=== PATIENT | female | born 1940 | race Asian ===

== ENCOUNTER 2018-12-07 10:36 | Inpatient (IN) | payer MEDICARE, OTHER ==
[~2018-12-07] VITALS: Ht 152.4 cm; Wt 59.0 kg
[2018-12-07 10:47] VITALS: BP 139/63
--- NOTE | 2018-12-07 10:50 | NUR ---
ED Nurse Note: pt was bought in to ER by ambulance from street. pt aao x4 and Icelandic speaking. pt felt dizzy so went to [facility] and they were closed due to saturday. pt was going back home and felt dizzy and was not able to walk. pt sat down to grass and asked random person on the street to call 911. EMS reported that pt fell but pt denied fall incident. pt stated "I just sat down because I was too dizzy." skin clean and intact but pale. pt reported she had diarrhea x3 started today and nausea with clear saliva vomit.
[2018-12-07] MEDS ORDERED: Meclizine 25mg tab ORAL ONE (11:00)
[2018-12-07 11:43] LABS: BASOPHILS % (AUTO) 0.7 % (0.0-2.0); EOSINOPHILS % (AUTO) 1.1 % (0.0-3.0); HEMATOCRIT 37.8 % (37.0-47.0); HEMOGLOBIN 12.4 G/DL (12.0-16.0); LYMPHOCYTES % (AUTO) 11.5 % (20.0-45.0); MEAN CORPUSCULAR VOLUME 92 FL (80-99); MONOCYTES % (AUTO) 4.3 % (1.0-10.0); NEUTROPHILS % (AUTO) 82.4 % (45.0-75.0); PLATELET COUNT 201 K/UL (150-450); RED BLOOD COUNT 4.13 M/UL (4.20-5.40); RED CELL DISTRIBUTION WIDTH 12.1 % (11.6-14.8); WHITE BLOOD COUNT 9.1 K/UL (4.8-10.8)
[2018-12-07 11:59] LABS: ANION GAP 8 mmol/L (5-15); BLOOD UREA NITROGEN 20 mg/dL (7-18); CARBON DIOXIDE 26 MMOL/L (21-32); CHLORIDE 105 MMOL/L (98-107); CREATININE 0.7 MG/DL (0.55-1.30); INR 0.9 (0.9-1.1); SODIUM 139 MMOL/L (136-145)
[2018-12-07 12:03] LABS: ALANINE AMINOTRANSFERASE 17 U/L (12-78); ALBUMIN/GLOBULIN RATIO 1.1 (1.0-2.7); ALKALINE PHOSPHATASE 57 U/L (46-116); ASPARTATE AMINO TRANSFERASE 20 U/L (15-37); BILIRUBIN,TOTAL 0.6 MG/DL (0.2-1.0)
--- NOTE | 2018-12-07 12:14 | Diagnostic Imaging Report ---
EXAM: CT Head Without Intravenous Contrast CLINICAL HISTORY: DIZZY TECHNIQUE: Axial computed tomography images of the head/brain without intravenous contrast. CTDI is 70.38 mGy and DLP is 1369 mGy-cm. One or more of the following dose reduction techniques were used: automated exposure control, adjustment of the mA and/or kV according to patient size, use of iterative reconstruction technique. COMPARISON: No relevant prior studies available. FINDINGS: No intracranial hemorrhage, abnormal intra- or extra-axial collections or parenchymal lesions are seen. There are mild involutional changes with prominence of the sulci, basal cisterns and ventricles. Scattered mild white matter hypoattenuations are present, likely from small vessel disease. The byers-white differentiation is preserved. No evidence of mass effect, midline shift, or edema. The osseous structures are unremarkable. The visualized portions of the paranasal sinuses are clear. IMPRESSION: 1. No acute intracranial process. 2. Mild involutional changes with small vessel disease.
[2018-12-07 13:10] VITALS: BP 133/46
[2018-12-07 15:38] VITALS: BP 133/64
--- NOTE | 2018-12-07 15:40 | NUR ---
Devendra luz in EDM - 12/07/18 at 1542 by [email or web address] ED Nurse Note: pt left [facility] with 2 transporation personals in stable condition.
[2018-12-07] MEDS ORDERED: Miralax 17gm pkt ORAL PRN (15:45)
[2018-12-07] MEDS ORDERED: Morphine Sulfate 2mg/ml Inj(IV/IM USE ONLY) IVP PRN (15:45)
[2018-12-07] MEDS ORDERED: LORazepam Inj 2mg/ml 1ml IV PRN (15:45)
[2018-12-07] MEDS ORDERED: Dextrose 50% 25ml Syringe IV PRN (15:45)
[2018-12-07] MEDS ORDERED: Zolpidem 5mg tab ORAL PRN (15:45)
[2018-12-07] MEDS ORDERED: Mylanta II UD 30ml ORAL PRN (15:45)
--- NOTE | 2018-12-07 16:16 | NUR ---
ED Nurse Note: pt sleeping in bed in stable condition.
--- NOTE | 2018-12-07 17:21 | NUR ---
ED Nurse Note: attempted to give report and [facility] has not assigned the nurse yet. was told to call back in 5 minutes.
--- NOTE | 2018-12-07 17:41 | NUR ---
ED Nurse Note: report given to TO Doe.
[2018-12-07 17:44] VITALS: BP 133/64
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
--- NOTE | 2018-12-07 17:47 | NUR ---
ED Nurse Note: pt left department with 1 sterile proc tech in stable condition.
--- NOTE | 2018-12-07 18:15 | NUR ---
NURSE NOTES: Notified Dr. Hernandez that pt wants to leave AMA. Notified Magician/Illusionist pt wants to leave AMA and needs transpiration as she 78 years old and walks with a cane. [employer] provided taxi voucher. 1829: Taxi called for pt
--- NOTE | 2018-12-07 18:50 | NUR ---
NURSE NOTES: Pt left AMA with all belongings in a taxi, discussed with pt that she needs to go to her primary doctor as soon as possible or come back to the hospital if symptoms return or get worse. Pt verbalized understanding. Addendum: 12/07/18 at 1947 by DIEGO GRIFFIN RN Pt removed IV line and ID band. Pt ambulatory with cane at leaving AMA, escorted pt to taxi
--- NOTE | 2018-12-09 18:33 | Emergency Room Report ---
History of Present Illness General Chief Complaint: Dizziness Source: Patient Present Illness HPI Patient is an 78-year-old female who presented after increased generalized weakness and dizziness. Patient had a recent fall. She denies any current locations of pain. She reports having increased generalized weakness as well as increased left-sided chronic hearing deficit. Patient states that she had prior long-standing hearing loss to the left side. She reports of increased spinning sensation. She denies any syncopal episodes. Allergies: Coded Allergies: No Known Allergies (Unverified , 12/07/18) Patient History Past Medical History: see triage record Reviewed Nursing Documentation: PMH: Agreed; PSxH: Agreed Nursing Documentation-PMH Hx Hypertension: Yes Review of Systems All Other Systems: negative except mentioned in HPI Physical Exam Vital Signs Date Time Temp Pulse Resp B/P (MAP) Pulse Ox O2 Delivery O2 Flow Rate FiO2 12/07/18 10:32 97.5 76 16 164/74 Room Air 12/07/18 10:47 98 Sp02 EP Interpretation: reviewed, normal General Appearance: normal inspection, well appearing, no apparent distress, alert, GCS 15, obese, Chronically Ill Head: atraumatic ENT: normal voice, other - Large defect to the left TM with no fluid drainage. Neck: normal inspection, full range of motion, supple, no bony tend Respiratory: normal inspection, lungs clear, normal breath sounds, no respiratory distress, no retraction, no wheezing Cardiovascular #1: regular rate, rhythm, no edema Gastrointestinal: normal inspection, normal bowel sounds, non tender, soft, no guarding, no hernia Genitourinary: no CVA tenderness Musculoskeletal: normal inspection, back normal, normal range of motion Neurologic: normal inspection, alert, oriented x3, responsive, tube carrier III-XII nml as tested, speech normal Psychiatric: normal inspection, judgement/insight normal, mood/affect normal Skin: normal inspection, normal color, no rash Medical Decision Making Diagnostic Impression: Primary Impression: Generalized weakness Additional Impressions: Fall Vertigo Hearing loss in left ear ER Course CT the head read by radiology showed no evidence of acute intracranial hemorrhage or patient presented for dizziness. Differential diagnosis included was not limited to CVA, vertebrobasilar insufficiency, myocardial infarction, benign positional vertigo, labyrinthitis, aspirin overdose among others. The patient has exam consistent with peripheral vertigo likely do to benign positional vertigo. Patient was given oral meclizine. Patient had some improvement in her symptoms but continued to feel weak and was noted to have continued unsteady gait. Patient was given IV fluids as well as Zofran. CT of head read by radiology showed nonspecific white matter changes without evident intracranial hemorrhage or CVA. Dr. Dayron Hernandez was contacted for inpatient management. Labs Test 12/07/18 11:15 White Blood Count 9.1 K/UL (4.8-10.8) Red Blood Count 4.13 M/UL (4.20-5.40) Hemoglobin 12.4 G/DL (12.0-16.0) Hematocrit 37.8 % (37.0-47.0) Mean Corpuscular Volume 92 FL (80-99) Mean Corpuscular Hemoglobin 30.1 PG (27.0-31.0) Mean Corpuscular Hemoglobin Concent 32.9 G/DL (32.0-36.0) Red Cell Distribution Width 12.1 % (11.6-14.8) Platelet Count 201 K/UL (150-450) Mean Platelet Volume 7.7 FL (6.5-10.1) Neutrophils (%) (Auto) 82.4 % (45.0-75.0) Lymphocytes (%) (Auto) 11.5 % (20.0-45.0) Monocytes (%) (Auto) 4.3 % (1.0-10.0) Eosinophils (%) (Auto) 1.1 % (0.0-3.0) Basophils (%) (Auto) 0.7 % (0.0-2.0) Prothrombin Time 10.0 SEC (9.30-11.50) Prothromb Time International Ratio 0.9 (0.9-1.1) Activated Partial Thromboplast Time 21 SEC (23-33) Sodium Level 139 MMOL/L (136-145) Potassium Level 4.0 MMOL/L (3.5-5.1) Chloride Level 105 MMOL/L (98-107) Carbon Dioxide Level 26 MMOL/L (21-32) Anion Gap 8 mmol/L (5-15) Blood Urea Nitrogen 20 mg/dL (7-18) Creatinine 0.7 MG/DL (0.55-1.30) Estimat Glomerular Filtration Rate mL/min (>60) Glucose Level 138 MG/DL (74-106) Calcium Level 9.0 MG/DL (8.5-10.1) Total Bilirubin 0.6 MG/DL (0.2-1.0) Aspartate Amino Transf (AST/SGOT) 20 U/L (15-37) Alanine Aminotransferase (ALT/SGPT) 17 U/L (12-78) Alkaline Phosphatase 57 U/L (46-116) Troponin I 0.000 ng/mL (0.000-0.056) Total Protein 7.8 G/DL (6.4-8.2) Albumin 4.0 G/DL (3.4-5.0) Globulin 3.8 g/dL Albumin/Globulin Ratio 1.1 (1.0-2.7) EKG Diagnostic Results Rate: normal Rhythm: NSR ST Segments: no acute changes Last Vital Signs Date Time Temp Pulse Resp B/P (MAP) Pulse Ox O2 Delivery O2 Flow Rate FiO2 12/07/18 17:44 97.2 93 16 133/64 96 Room Air Status: unchanged Disposition: ADMITTED INPATIENT Condition: Stable Referrals: NON PHYSICIAN (PCP) Julian Larson MD Dec 09, 2018 18:33
--- NOTE | 2018-12-10 11:22 | Discharge Summary ---
Discharge Summary Discharge Summary _ DATE OF ADMISSION: 12/07/2018 DATE OF DISCHARGE: 12/07/2018 Patient left AMA REASON FOR ADMISSION: 78 years old female with past medical history of hypertension , presented to emergency department with chief complaint of generalized weakness and dizziness. Patient reported recent fall. Patient reported left-sided chronic hearing deficit and generalized weakness. She denies any syncopal episode , but reported some spinning sensation. Upon evaluation blood pressure was slightly elevated 164/74. Laboratory workup revealed no leukocytosis , stable hemoglobin and hematocrit. Stable coagulation profile. Stable electrolyte, renal parameters, LFT. Troponin negative. EKG revealed normal sinus rhythm, no acute ischemic changes. CT of the head demonstrated no acute intracranial pathology. Mild involutional changes with small vessel disease noted. Clinical exam was consistent with peripheral vertigo likely due to benign positional vertigo. Patient received meclizine in ED and reported some improvement in her symptoms. Patient received in emergency department IV fluids and Zofran. Patient was still weak, with unsteady gait. Patient admitted to Medical Surgical floor for further management. HOSPITAL COURSE: Patient admitted to medical surgical floor . Admitting orders were obtained. Patient started on diet. After being on the floor for about an hour, patient reported feeling better and decided to sign AGAINST MEDICAL ADVICE. The risks and consequences of signing AGAINST MEDICAL ADVICE were discussed with patient in detail. Patient verbalized understanding, nevertheless signed AMA form and left. Patient was provided taxi voucher prior to leaving. FINAL DIAGNOSES: Generalized weakness Vertigo likely secondary to benign positional vertigo Hearing loss left ear I have been assigned to dictate discharge summary for this account. I was not involved in the patient's management. Shannon Ford NP Dec 10, 2018 11:22
--- NOTE | 2018-12-11 21:03 | Cardiology Report ---
APPROVED REPORT EKG Measurement Heart [id number] CO [id number] Normal sinus rhythm Normal ECG
== END 2018-12-07 18:54 | disposition left against medical advice (07) | DRG 149 ==
LOC: EDBD 10:36 → EMR 11:19 → EDBEDREQ 15:16 → 4E 16:52
DX: H81.10 Benign paroxysmal vertigo, unspecified ear (principal); R53.1 Weakness; H91.92 Unspecified hearing loss, left ear
CPT/HCPCS: 36415; 70450; 80053; 84484; 85025; 85610; 85730; 93005; 96361; 96374; 99285; J2405